=== PATIENT | female | born 1960 | race Caucasian/White ===

== ENCOUNTER → 2016-08-24 | Outpatient (CLI) | payer OTHER ==
[~2016-08-24] MED LIST: ALBUTEROL SULF8.5 GM IH; ASPIR 8181 M1 PO; CLONAZEPAM0.5 MG PO; LYRICA50 MG PO; METOPROLOL SUCC50 MG PO; NITROGLYCERIN0.4 MG SL; PAXIL40 MG PO; PERCOCET 5/31 TABLET PO; POTASSIUM-9999 MG PO; SIMVASTATIN20 MG PO
== END | disposition home or self-care (01) ==
LOC: EEG 08:53
DX: Z87.898 Personal history of other specified conditions (principal)
CPT/HCPCS: 95954

== ENCOUNTER → 2017-05-06 | Outpatient (CLI) | payer OTHER ==
[~2017-05-06] VITALS: Ht 162.6 cm; Wt 93.8 kg
[~2017-05-06] MED LIST changes: +K-DUR20 MEQ PO; +KEPPRA500 MG PO; +LIPITOR80 MG PO; +LOPRESSOR50 MG PO; -METOPROLOL SUCC50 MG PO; -POTASSIUM-9999 MG PO; +ZANAFLEX4 M1 PO
== END | disposition home or self-care (01) ==
LOC: AMB 04-22 11:30
DX: K63.5 Polyp of colon (principal); D12.3 Benign neoplasm of transverse colon; D12.4 Benign neoplasm of descending colon; K64.8 Other hemorrhoids; Z80.0 Family history of malignant neoplasm of digestive organs; Z87.820 Personal history of traumatic brain injury; I25.10 Atherosclerotic heart disease of native coronary artery without angina pectoris; F41.8 Other specified anxiety disorders; E78.5 Hyperlipidemia, unspecified; I10 Essential (primary) hypertension; G62.9 Polyneuropathy, unspecified; E66.9 Obesity, unspecified; G47.30 Sleep apnea, unspecified; E55.9 Vitamin D deficiency, unspecified; F17.200 Nicotine dependence, unspecified, uncomplicated; Z79.82 Long term (current) use of aspirin; Z80.3 Family history of malignant neoplasm of breast; Z82.49 Family history of ischemic heart disease and other diseases of the circulatory system; Z80.42 Family history of malignant neoplasm of prostate; Z83.3 Family history of diabetes mellitus; Z90.49 Acquired absence of other specified parts of digestive tract; Z90.710 Acquired absence of both cervix and uterus
CPT/HCPCS: 88305; 93005; J2250; J3010

== ENCOUNTER → 2017-06-24 | Outpatient (CLI) | payer OTHER ==
[~2017-06-24] VITALS: Ht 162.6 cm; Wt 90.3 kg
[~2017-06-24] MED LIST changes: +IMODIUM A-D2 M2 PO
== END | disposition home or self-care (01) ==
LOC: AMB 11:16
DX: K29.70 Gastritis, unspecified, without bleeding (principal); K22.70 Barrett's esophagus without dysplasia; R10.31 Right lower quadrant pain; R63.4 Abnormal weight loss; K62.5 Hemorrhage of anus and rectum; I25.10 Atherosclerotic heart disease of native coronary artery without angina pectoris; E78.5 Hyperlipidemia, unspecified; I10 Essential (primary) hypertension; E66.9 Obesity, unspecified; G47.30 Sleep apnea, unspecified
CPT/HCPCS: 88305; 88342 TC